=== PATIENT | male | born 1950 | race Caucasian/White ===

== ENCOUNTER 2022-12-28 08:30 | Outpatient (REF) | payer MEDICARE, SELFPAY ==
[2022-12-28 10:04] LABS: Anion Gap 15 (12-20); Blood Urea Nitrogen 16 mg/dL (9-16); Calcium 10.3 mg/dL (8.4-10.2); Carbon Dioxide 27 mmol/L (22-29); Chloride 105 mmol/L (96-108); Estimated Glomerular Filt Rate > 60; Glucose Random 101 mg/dL (60-115); Potassium 4.7 mmol/L (3.3-5.1); Sodium 142 mmol/L (135-145)
[2022-12-28 10:18] LABS: Erythrocyte Sedimentation Rate 38 MM/HR (0-15)
[2022-12-30 01:18] LABS: Lyme Abs Screen <0.90 index
== END 2022-12-28 08:31 | disposition home or self-care (01) ==
LOC: HO.LAB 08:30
PROVIDERS: PCP Internal Medicine; Visit Provider Psychiatry & Neurology Neurology
DX: G03.0 Nonpyogenic meningitis (principal)
CPT/HCPCS: 36415; 80048; 85652; 86617; 86618